=== PATIENT | female | born 1955 | race Caucasian/White ===

== ENCOUNTER → 2016-11-16 | Outpatient (CLI) | payer BC ==
--- NOTE | 2016-11-16 15:39 | RADRPT ---
PROCEDURE: XR Knee. CLINICAL INDICATION: Knee pain TECHNIQUE: 4 views of the left knee COMPARISON: None. FINDINGS: No fracture or dislocation is identified. There are tricompartmental degenerative changes, severe a t the medial compartment with severe joint space narrowing and sclerosis, and osteophytes. Osteophy prudence are also present at the lateral compartment and patellofemoral joints without significant joint space narrowing. There is suggestion of a small to moderate suprapatellar joint effusion. A patell ar enthesophyte is seen superiorly. IMPRESSION: Tricompartmental degenerative changes, severe at the medial compartment. Patellar enthesophyte. Suggestion of joint effusion. RPTAT: VV .Kaden Richards MD, Date Time Electronically viewed and signed by .Kaden Richards MD, on 11/16/2016 15:38 .O/
== END | disposition home or self-care (01) ==
LOC: HKI 14:31
PROVIDERS: ATTEND Orthopaedic Surgery
DX: M25.562 Pain in left knee (principal); M17.12 Unilateral primary osteoarthritis, left knee
CPT/HCPCS: 20610; 73564; G0463; J1030